=== PATIENT | male | born 1940 | race American Indian/Alaskan Native ===

== ENCOUNTER 2017-02-26 11:27 | Inpatient (IN) | payer MEDICARE, OTHER ==
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
[2017-02-26 12:40] LABS: PH,URINE 7.5 (4.7-8.0); URINE BILIRUBIN NEGATIVE (NEGATIVE); URINE BLOOD NEGATIVE (NEGATIVE); URINE GLUCOSE (UA) NEGATIVE (NEGATIVE); URINE LEUKOCYTE ESTERASE NEGATIVE Leu/uL (NEGATIVE); URINE NITRATE NEGATIVE (NEGATIVE); URINE PROTEIN NEGATIVE mg/dL (<30 mg/dL); URINE UROBILINOGEN 0.2 E.U./dL (<1 E.U./dL)
[2017-02-26 12:46] LABS: URINE APPEARANCE CLEAR (CLEAR); URINE COLOR YELLOW (YELLOW)
[2017-02-26 12:47] LABS: BASO # 0.02 K/mm3 (0.0-2.0); BASO % 0.5 % (0.0-3.0); EOS % 0.8 % (1.5-5.0); GRAN # 2.93 (1.4-6.5); GRAN % 74.5 % (50.0-68.0); HEMOGLOBIN 11.2 gm/dL (14.0-18.0); LYMPH # 0.7 (1.2-3.4); LYMPH % 17.6 % (22.0-35.0); MEAN CELL VOLUME 71.2 fL (80.0-105.0); MEAN CORPUSCULAR HEMOGLOBIN 23.7 pg (25.0-35.0); MEAN CORPUSCULAR HGB CONC 33.2 g/dl (31.0-37.0); MONO # 0.3 (0.1-0.6); MONO % 6.6 % (1.0-6.0); PLATELET COUNT 87 10^3/uL (120.0-450.0); RBC 4.73 10^6/uL (3.5-6.1); RED CELL DISTRIBUTION WIDTH 14.7 % (11.5-14.5); WHITE BLOOD COUNT 3.9 10^3/ul (4.5-11.0)
--- NOTE | 2017-02-26 12:55 | RAD ---
HISTORY: admission COMPARISON: No prior. FINDINGS: LUNGS: No active pulmonary disease. PLEURA: No significant pleural effusion identified, no pneumothorax apparent. CARDIOVASCULAR: Mild cardiomegaly OSSEOUS STRUCTURES: No significant abnormalities. VISUALIZED UPPER ABDOMEN: Normal. OTHER FINDINGS: None. IMPRESSION: No active disease.
[2017-02-26 12:58] LABS: INR 1.11 (0.93-1.08); PARTIAL THROMBOPLASTIN TIME 26.8 Seconds (23.7-30.8)
[2017-02-26 12:59] LABS: ALB/GLOB RATIO 1.2 (1.1-1.8); ALBUMIN 4.3 g/dL (3.0-4.8); ALT/SGPT 17 U/L (7-56); AMYLASE 73 U/L (35-125); AST/SGOT 23 U/L (15-59); BLOOD UREA NITROGEN 16 mg/dL (7-21); CALCIUM 9.2 mg/dL (8.4-10.5); GFR AFRICAN-AMERICAN > 60; GFR NON-AFRICAN AMERICAN > 60; LIPASE 25 U/L (23-300)
[2017-02-26 13:13] LABS: TROPONIN I < 0.01 ng/mL
[2017-02-26] MEDS ORDERED: Sodium Chloride 0.9% 500 ML IV STA (13:19)
--- NOTE | 2017-02-26 13:27 | CT ---
PROCEDURE: CT Abdomen and Pelvis without intravenous contrast HISTORY: rectal bleeding COMPARISON: 06/05/2016. TECHNIQUE: CT scan of the abdomen and pelvis was performed without administration of intravenous contrast. Oral contrast was not administered. Coronal and sagittal reformatted images were obtained. Radiation dose: Total exam DLP = 430.26 mGy-cm. This CT exam was performed using one or more of the following dose reduction techniques: Automated exposure control, adjustment of the mA and/or kV according to patient size, and/or use of iterative reconstruction technique. FINDINGS: LOWER THORAX: There is subsegmental atelectasis in the medial segment of the right middle lobe and left lower lobe. The right lung base is clear. LIVER: The liver is normal in size. No gross lesion or ductal dilatation. GALLBLADDER AND BILE DUCTS: There are no calcified gallstones. PANCREAS: There is mild fatty atrophy of the pancreas. No gross lesion or ductal dilatation. SPLEEN: The spleen is normal in size. ADRENALS: Both adrenal glands are normal in size without discrete nodule. KIDNEYS AND URETERS: Both kidneys are normal in size. There is a 5 mm nonobstructing stone in the lower pole of the right kidney. There are punctate nonobstructing stones in both kidneys. There is mild right hydronephrosis and mild diffuse dilatation of the right ureter without obstructing stone. There is a 1.8 cm simple cyst in the lower pole of the right kidney VASCULATURE: No aortic aneurysm. BOWEL: The small bowel loops are normal in caliber. Status post right colectomy an ileotransverse anastomosis. There is colonic diverticulosis without CT evidence for acute diverticulitis. No bowel dilatation or obstruction. There is an apparent 2.7 x 2.1 cm exophytic isodense lesion along the left lateral wall of the rectum. PERITONEUM: No free fluid. No free air. LYMPH NODES: No enlarged lymph nodes. BLADDER: There are 2 discrete 2 mm stones along the posterior wall of the urinary bladder. There is nonspecific coarse calcification along the right posterolateral bladder wall. REPRODUCTIVE: There is moderate enlargement of the prostate gland with median lobe hypertrophy indenting on the base of the urinary bladder. BONES: No acute fracture. Advanced degenerative disc disease at L4-5 with vacuum disc and small nodes. OTHER FINDINGS: There is a small sliding hiatal hernia. There are bilateral small inguinal hernias containing fibro fatty tissue. IMPRESSION: 1. 2.7 x 2.1 cm exophytic lesion along the left lateral wall of the rectum. Endoscopic correlation is advised to exclude neoplasm. 2. Mild right hydronephrosis and mild diffuse dilatation of the ureteral could be related to recent passage of stones. No obstructing stone identified. 2 discrete 2 mm stones along the posterior wall of the urinary bladder.Bilateral nephrolithiasis, the largest nonobstructing stone in the right lower pole measures 5 mm. 3. Moderate enlargement of the prostate gland with median lobe hypertrophy indenting on the base of the urinary bladder. Please correlate with PSA levels. 4. Status post right hemicolectomy and ileotransverse anastomosis. Colonic diverticulosis without CT evidence for acute diverticulitis.
[2017-02-26] MEDS ORDERED: Sodium Chloride 0.9% 1,000 ML IV STA (15:11)
[2017-02-26 20:03] LABS: BASO # 0.02 K/mm3 (0.0-2.0); BASO % 0.5 % (0.0-3.0); EOS % 0.7 % (1.5-5.0); GRAN # 2.88 (1.4-6.5); GRAN % 71.5 % (50.0-68.0); HEMOGLOBIN 11.5 gm/dL (14.0-18.0); LYMPH # 0.8 (1.2-3.4); LYMPH % 19.1 % (22.0-35.0); MEAN CELL VOLUME 71.2 fL (80.0-105.0); MEAN CORPUSCULAR HEMOGLOBIN 23.5 pg (25.0-35.0); MONO # 0.3 (0.1-0.6); MONO % 8.2 % (1.0-6.0); PLATELET COUNT 103 10^3/uL (120.0-450.0); RED CELL DISTRIBUTION WIDTH 14.7 % (11.5-14.5)
[2017-02-26 21:24] VITALS: BMI 25.9
[2017-02-26] MEDS ORDERED: Pneumococcal 23-Valent Vaccine IM ONE (21:24)
--- NOTE | 2017-02-27 00:01 | CP.PCM.PN ---
Subjective - Date & Time of Evaluation Date of Evaluation: 02/26/17 Objective - Vital Signs/Intake and Output Vital Signs (last 24 hours): Temp Pulse Resp BP Pulse Ox 98 F 82 16 158/90 H 98 02/26/17 21:12 02/26/17 21:12 02/26/17 21:12 02/26/17 21:12 02/26/17 16:00 Intake and Output: 02/26/17 02/27/17 18:59 06:59 Intake Total 480 Balance 480 - Medications Medications: Current Medications Amlodipine Besylate (Norvasc) 10 mg PO DAILY [facility] Carvedilol (Coreg) 6.25 mg PO BID [facility] Finasteride (Proscar) 5 mg PO DAILY [facility] Sodium Chloride (Sodium Chloride 0.9%) 1,000 mls @ 100 mls/hr IV .Q10H STA Stop: 02/27/17 01:10 Last Admin: 02/26/17 15:40 Dose: 100 mls/hr Pantoprazole Sodium (Protonix Inj) 40 mg IVP Q12 [facility] Last Admin: 02/26/17 21:45 Dose: 40 mg - Labs Labs: 02/26/17 19:45 PT 12.0 Seconds (9.9-11.8) H 02/26/17 12:20 INR 1.11 (0.93-1.08) H 02/26/17 12:20 APTT 26.8 Seconds (23.7-30.8) 02/26/17 12:20 Attending/Attestation - Attestation I have personally seen and examined this patient.: Yes I have fully participated in the care of the patient.: Yes I have reviewed all pertinent clinical information, including history, physical exam and plan: Yes
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
[2017-02-27 04:55] LABS: BASO # 0.04 K/mm3 (0.0-2.0); BASO % 1.2 % (0.0-3.0); EOS % 1.2 % (1.5-5.0); GRAN # 1.98 (1.4-6.5); GRAN % 60.6 % (50.0-68.0); HEMOGLOBIN 10.4 gm/dL (14.0-18.0); LYMPH # 0.9 (1.2-3.4); LYMPH % 26.6 % (22.0-35.0); MEAN CELL VOLUME 71.1 fL (80.0-105.0); MEAN CORPUSCULAR HGB CONC 32.3 g/dl (31.0-37.0); MONO # 0.3 (0.1-0.6); MONO % 10.4 % (1.0-6.0); PLATELET COUNT 100 10^3/uL (120.0-450.0); RBC 4.53 10^6/uL (3.5-6.1); RED CELL DISTRIBUTION WIDTH 14.8 % (11.5-14.5); WHITE BLOOD COUNT 3.3 10^3/ul (4.5-11.0)
--- NOTE | 2017-02-27 10:31 | CARD ---
APPROVED REPORT EKG Measurement Heart [id number] <Conclusion> Sinus bradycardia with premature supraventricular complexes Minimal voltage criteria for LVH, may be normal variant Nonspecific T wave abnormality
[2017-02-27 13:45] LABS: BASO # 0.04 K/mm3 (0.0-2.0); BASO % 1.3 % (0.0-3.0); GRAN # 2.13 (1.4-6.5); GRAN % 67.6 % (50.0-68.0); HEMOGLOBIN 11.2 gm/dL (14.0-18.0); LYMPH # 0.7 (1.2-3.4); LYMPH % 22.5 % (22.0-35.0); MEAN CELL VOLUME 71.3 fL (80.0-105.0); MEAN CORPUSCULAR HEMOGLOBIN 23.6 pg (25.0-35.0); MEAN CORPUSCULAR HGB CONC 33.1 g/dl (31.0-37.0); MONO # 0.2 (0.1-0.6); MONO % 7.6 % (1.0-6.0); PLATELET COUNT 87 10^3/uL (120.0-450.0); RBC 4.74 10^6/uL (3.5-6.1); RED CELL DISTRIBUTION WIDTH 14.9 % (11.5-14.5); WHITE BLOOD COUNT 3.2 10^3/ul (4.5-11.0)
[2017-02-27 20:16] LABS: BASO # 0.02 K/mm3 (0.0-2.0); BASO % 0.7 % (0.0-3.0); EOS # 0.1 (0.0-0.7); EOS % 1.8 % (1.5-5.0); GRAN # 1.55 (1.4-6.5); GRAN % 56.4 % (50.0-68.0); HEMOGLOBIN 10.7 gm/dL (14.0-18.0); LYMPH # 0.8 (1.2-3.4); LYMPH % 28.7 % (22.0-35.0); MEAN CELL VOLUME 71.3 fL (80.0-105.0); MEAN CORPUSCULAR HEMOGLOBIN 23.3 pg (25.0-35.0); MEAN CORPUSCULAR HGB CONC 32.6 g/dl (31.0-37.0); MONO # 0.3 (0.1-0.6); MONO % 12.4 % (1.0-6.0); PLATELET COUNT 103 10^3/uL (120.0-450.0); RED CELL DISTRIBUTION WIDTH 14.9 % (11.5-14.5)
[2017-02-27 20:19] LABS: WHITE BLOOD COUNT 2.8 10^3/ul (4.5-11.0)
--- NOTE | 2017-02-27 22:34 | PN ---
DATE: SUBJECTIVE: The patient is seen and examined on the bedside, sitting on the chair, still having blood in the stool, now according to him, it is dark black blood. No nausea or vomiting. No hematuria or hematochezia. No headache or dizziness. No shortness of breath. No chest pain, no palpitations. PHYSICAL EXAMINATION: VITAL SIGNS: Temperature is 98.6, pulse 50, blood pressure 133/83 and respiratory rate 18. HEENT: Head normocephalic and atraumatic. Eyes, PERRLA. Extraocular muscles intact. Conjunctivae clear. Nose patent. Mucous membrane moist. NECK: Supple. No carotid bruit or thyromegaly. CHEST: Bilaterally symmetrical. HEART: S1 and S2, positive. LUNGS: Clear to auscultation. ABDOMEN: Soft. Bowel sounds present. No organomegaly EXTREMITIES: No edema. No cyanosis. NEUROLOGIC: Awake and alert. Moving all 4 extremities. No focal deficits. MEDICATIONS: Coreg, Norvasc, Proscar and Protonix. LABORATORY DATA: White blood cell 3.2, hemoglobin 11.2, hematocrit 33.8, and platelets 87. ASSESSMENT AND PLAN: Mr. Matteo Quintana is a 76-year-old male with anemia, leukopenia, and thrombocytopenia, actually pancytopenia came with the lower gastrointestinal bleeding. CAT scan of the abdomen and pelvis done showed 2.7 x 2.1 cm exophytic lesion along the left lateral wall of the rectum. Endoscopic correlation is advised to exclude the neoplasm and Dr. Landaverde is working on that. Hydronephrosis and nephrolithiasis, benign prostatic hypertrophy, status post right hemicolectomy and ileotransverse anastomosis, chronic diverticulosis without CT evidence of acute diverticulitis. The patient is getting IV fluid. Continue present treatment. He will go for colonoscopy. We will follow up. Екатерина Westbrook MD
[2017-02-28] MEDS ORDERED: Peg-Electrolyte Oral Soln 4L (Golytely) PO ONE (14:40)
--- NOTE | 2017-03-01 03:03 | PN ---
SUBJECTIVE: The patient is seen and examined at the bedside, sitting on the chair, looking comfortable. No nausea, vomiting, diarrhea. No hematuria or hematochezia. No headache, dizziness, chest pain, palpitations, or abdominal pain. PHYSICAL EXAMINATION: VITAL SIGNS: Temperature is 97.9, pulse 58, blood pressure 143/79, and respiratory rate 15. HEENT: Head; normocephalic and atraumatic. Eyes; PERRLA. Extraocular muscles intact. Conjunctivae clear. Nose patent. Mucous membrane moist. NECK: Supple. No carotid bruit. No JVD or thyromegaly. CHEST: Bilaterally symmetrical. HEART: S1 and S2 positive. LUNGS: Clear to auscultation. ABDOMEN: Soft. Bowel sounds present. No organomegaly. EXTREMITIES: No edema. No cyanosis. NEUROLOGIC: The patient is awake and alert, moving all four extremities. No focal deficits. MEDICATIONS: Coreg, Norvasc, and Proscar. LABORATORY DATA: White blood cell 2.8, hemoglobin 10.7, hematocrit 32.8, and platelets 103. Sodium 142 and potassium 3.6. ASSESSMENT AND PLAN: The patient is a 76-year-old male with a leukopenia, anemia, and thrombocytopenia, history of lower gastrointestinal bleeding, seen by Dr. Akhil Rucker, box maker wood. CAT scan of the abdomen and pelvis done. The patient is drinking golyte . He is on clear liquid diet, getting ready tomorrow for colonoscopy and endoscopy. CAT scan shows some exophytic lesion along the left lateral wall of the rectum. GI and DVT prophylaxis, continue present treatment, repeat labs, we will followup. Екатерина Westbrook MD LEATHA
[2017-03-01 07:40] LABS: BASO # 0.02 K/mm3 (0.0-2.0); BASO % 0.5 % (0.0-3.0); EOS % 0.5 % (1.5-5.0); GRAN # 2.82 (1.4-6.5); GRAN % 70.5 % (50.0-68.0); HEMOGLOBIN 11.8 gm/dL (14.0-18.0); LYMPH # 0.8 (1.2-3.4); MEAN CELL VOLUME 71.1 fL (80.0-105.0); MEAN CORPUSCULAR HEMOGLOBIN 23.2 pg (25.0-35.0); MEAN CORPUSCULAR HGB CONC 32.7 g/dl (31.0-37.0); MONO # 0.3 (0.1-0.6); MONO % 7.5 % (1.0-6.0); PLATELET COUNT 118 10^3/uL (120.0-450.0); RBC 5.08 10^6/uL (3.5-6.1); RED CELL DISTRIBUTION WIDTH 14.9 % (11.5-14.5)
[2017-03-01 07:49] LABS: INR 1.11 (0.93-1.08); PARTIAL THROMBOPLASTIN TIME 26.5 Seconds (23.7-30.8)
[2017-03-01 08:20] VITALS: O2SAT 99
[2017-03-01] MEDS ORDERED: Sodium Chloride 0.9% 1,000 ML IV SCH (09:00)
[2017-03-01] MEDS ORDERED: Propofol 10 mg/ml Inj (20 ML) ONE (09:14)
[2017-03-01 09:38] LABS: PLATELET COUNT MANUAL 122 K/mm3 (120-450)
[2017-03-01] MEDS ORDERED: Lidocaine 1% Inj (20ml) ONE (09:44)
[2017-03-01 11:03] VITALS: PULSE 50
[2017-03-01 13:27] VITALS: BP 155/83; RESP 18; TEMP 98.2
--- NOTE | 2017-03-01 17:08 | CP.PCM.DIS ---
Provider - Provider Date of Admission: 02/26/17 15:09 Attending physician: Екатерина Westbrook MD Primary care physician: NO PRIMARY CARE PROVIDER Time Spent in preparation of Discharge (in minutes): 60 Diagnosis - Discharge Diagnosis (1) Anemia Status: Acute (2) Anemia Status: Acute (3) Diverticulitis Status: Acute (4) GI bleed Status: Acute (5) History of percutaneous transluminal coronary angioplasty Status: Acute (6) Leukopenia Status: Acute (7) Lower gastrointestinal hemorrhage Status: Acute (8) Rectal hemorrhage Status: Acute (9) Thrombocytopenia Status: Acute (10) Vasovagal syncope Status: Acute Hospital Course - Lab Results Lab Results: Most Recent Lab Values WBC 4.0 10^3/ul (4.5-11.0) L D 03/01/17 07:10 RBC 5.08 10^6/uL (3.5-6.1) 03/01/17 07:10 Hgb 11.8 gm/dL (14.0-18.0) L 03/01/17 07:10 Hct 36.1 % (42.0-52.0) L 03/01/17 07:10 MCV 71.1 fL (80.0-105.0) L 03/01/17 07:10 MCH 23.2 pg (25.0-35.0) L 03/01/17 07:10 MCHC 32.7 g/dl (31.0-37.0) 03/01/17 07:10 RDW 14.9 % (11.5-14.5) H 03/01/17 07:10 Plt Count 118 10^3/uL (120.0-450.0) L 03/01/17 07:10 Manual Plt Count 122 K/mm3 (120-450) 03/01/17 07:10 Gran % 70.5 % (50.0-68.0) H 03/01/17 07:10 Lymph % (Auto) 21.0 % (22.0-35.0) L 03/01/17 07:10 [place] % (Auto) 7.5 % (1.0-6.0) H 03/01/17 07:10 Eos % (Auto) 0.5 % (1.5-5.0) L 03/01/17 07:10 Baso % (Auto) 0.5 % (0.0-3.0) 03/01/17 07:10 Gran # 2.82 (1.4-6.5) 03/01/17 07:10 Lymph # 0.8 (1.2-3.4) L 03/01/17 07:10 [place] # 0.3 (0.1-0.6) 03/01/17 07:10 Eos # 0.0 (0.0-0.7) 03/01/17 07:10 Baso # 0.02 K/mm3 (0.0-2.0) 03/01/17 07:10 PT 12.0 Seconds (9.9-11.8) H 03/01/17 07:10 INR 1.11 (0.93-1.08) H 03/01/17 07:10 APTT 26.5 Seconds (23.7-30.8) 03/01/17 07:10 Sodium 142 mmol/L (132-148) 02/26/17 12:20 Potassium 3.6 mmol/L (3.6-5.0) 02/26/17 12:20 Chloride 102 mmol/L (98-107) 02/26/17 12:20 Carbon Dioxide 30 mmol/L (21-33) 02/26/17 12:20 Anion Gap 14 (10-20) 02/26/17 12:20 BUN 16 mg/dL (7-21) 02/26/17 12:20 Creatinine 1.1 mg/dL (0.5-1.4) 02/26/17 12:20 Est GFR ( Amer) > 60 02/26/17 12:20 Est GFR (Non-Af Amer) > 60 02/26/17 12:20 Random Glucose 87 mg/dL (70-110) 02/26/17 12:20 Calcium 9.2 mg/dL (8.4-10.5) 02/26/17 12:20 Total Bilirubin 1.1 mg/dL (0.2-1.3) 02/26/17 12:20 AST 23 U/L (15-59) 02/26/17 12:20 ALT 17 U/L (7-56) 02/26/17 12:20 Alkaline Phosphatase 76 U/L (38-133) 02/26/17 12:20 Lactate Dehydrogenase 346 U/L (333-699) 02/26/17 12:20 Total Creatine Kinase 160 U/L (35-230) 02/26/17 12:20 Troponin I < 0.01 ng/mL 02/26/17 12:20 NT-Pro-B Natriuret Pep 157 pg/mL (0-450) 02/26/17 12:30 Total Protein 7.9 g/dL (5.8-8.3) 02/26/17 12:20 Albumin 4.3 g/dL (3.0-4.8) 02/26/17 12:20 Globulin 3.6 gm/dL 02/26/17 12:20 Albumin/Globulin Ratio 1.2 (1.1-1.8) 02/26/17 12:20 Amylase 73 U/L (35-125) 02/26/17 12:20 Lipase 25 U/L (23-300) 02/26/17 12:20 Urine Color Yellow (YELLOW) 02/26/17 12:30 Urine Appearance Clear (CLEAR) 02/26/17 12:30 Urine pH 7.5 (4.7-8.0) 02/26/17 12:30 Ur Specific [place] 1.015 (1.005-1.035) 02/26/17 12:30 Urine Protein Negative mg/dL (<30 mg/dL) 02/26/17 12:30 Urine Glucose (UA) Negative mg/dL (NEGATIVE) 02/26/17 12:30 Urine Ketones Negative mg/dL (NEGATIVE) 02/26/17 12:30 Urine Blood Negative (NEGATIVE) 02/26/17 12:30 Urine Nitrate Negative (NEGATIVE) 02/26/17 12:30 Urine Bilirubin Negative (NEGATIVE) 02/26/17 12:30 Urine Urobilinogen 0.2 E.U./dL (<1 E.U./dL) 02/26/17 12:30 Ur Leukocyte Esterase Negative Miguel/uL (NEGATIVE) 02/26/17 12:30 - Hospital Course Hospital Course: A 76 year old male, whose past medical history includes diverticulitis, anemia and colitis, presents to the emergency department complaining of bloody diarrhea prior to arrival since this morning. Patient noted feeling light headedness. Patient states the pain is similar to prior diverticulitis symptoms. Patient denies any abdominal pain, chest pain or any other complaints.pt was admitted in the hospital , gi consult called , went for endo and colonoscopy , cat scane of abdomen done , noted by me , d/d with dr monae , he cleared pt . dc home with f/u pcp and gi Discharge Exam - Head Exam Head Exam: NORMAL INSPECTION - Eye Exam Eye Exam: EOMI, Normal appearance, PERRL Pupil Exam: NORMAL ACCOMODATION, PERRL - GI/Abdominal Exam GI & Abdominal Exam: Normal Bowel Sounds - Rectal Exam Rectal Exam: NORMAL INSPECTION - Exam Exam: Circumcision, NORMAL INSPECTION External exam: NORMAL EXTERNAL EXAM Speculum exam: NORMAL SPECULUM EXAM Bimanual exam: NORMAL BIMANUAL EXAM - Neurological Exam Neurological exam: Alert, CN II-XII Intact, Normal Gait, Oriented x3, Reflexes Normal - Psychiatric Exam Psychiatric exam: Normal Affect, Normal Mood - Skin Skin Exam: Dry, Intact, Normal Color, Warm Discharge Plan - Follow Up Plan Condition: STABLE Disposition: HOME/ ROUTINE Instructions: Gastrointestinal Bleeding (DC), Heart Healthy Diet (DC), Upper Endoscopy (DC), Acute Abdominal Pain (DC) Referrals: Екатерина Westbrook MD [Staff Provider] - Alka Landaverde MD [Medical Doctor] -
--- NOTE | 2017-03-01 23:42 | CP.PCM.PN ---
Subjective - Date & Time of Evaluation Date of Evaluation: 02/28/17 Time of Evaluation: 14:45 - Subjective Subjective: p Objective - Vital Signs/Intake and Output Vital Signs (last 24 hours): Temp Pulse Resp BP Pulse Ox 97.9 F 58 L 16 143/79 99 02/28/17 15:58 02/28/17 15:58 02/28/17 15:58 02/28/17 17:13 02/28/17 15:58 Intake and Output: 02/28/17 03/01/17 18:59 06:59 Intake Total 1080 800 Balance 1080 800 - Medications Medications: Current Medications Amlodipine Besylate (Norvasc) 10 mg PO DAILY [facility] Last Admin: 02/28/17 09:33 Dose: 10 mg Carvedilol (Coreg) 6.25 mg PO BID [facility] Last Admin: 02/28/17 17:13 Dose: 6.25 mg Finasteride (Proscar) 5 mg PO DAILY [facility] Last Admin: 02/28/17 09:34 Dose: 5 mg - Labs Labs: 02/27/17 20:00 PT 12.0 Seconds (9.9-11.8) H 02/26/17 12:20 INR 1.11 (0.93-1.08) H 02/26/17 12:20 APTT 26.8 Seconds (23.7-30.8) 02/26/17 12:20 Assessment and Plan - Assessment and Plan (Free Text) Assessment: p
--- NOTE | 2017-03-01 23:43 | CP.PCM.PN ---
Subjective - Date & Time of Evaluation Date of Evaluation: 02/27/17 Time of Evaluation: 18:30 - Subjective Subjective: p Objective - Vital Signs/Intake and Output Vital Signs (last 24 hours): Temp Pulse Resp BP Pulse Ox 98.3 F 50 L 18 133/83 99 02/27/17 16:31 02/27/17 16:31 02/27/17 16:31 02/27/17 16:31 02/27/17 16:31 Intake and Output: 02/27/17 02/28/17 18:59 06:59 Intake Total 640 240 Balance 640 240 - Medications Medications: Current Medications Amlodipine Besylate (Norvasc) 10 mg PO DAILY [facility] Last Admin: 02/27/17 09:52 Dose: 10 mg Carvedilol (Coreg) 6.25 mg PO BID [facility] Last Admin: 02/27/17 18:20 Dose: 6.25 mg Finasteride (Proscar) 5 mg PO DAILY [facility] Last Admin: 02/27/17 09:52 Dose: 5 mg - Labs Labs: 02/27/17 20:00 PT 12.0 Seconds (9.9-11.8) H 02/26/17 12:20 INR 1.11 (0.93-1.08) H 02/26/17 12:20 APTT 26.8 Seconds (23.7-30.8) 02/26/17 12:20 Assessment and Plan - Assessment and Plan (Free Text) Assessment: p
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
== END 2017-03-01 14:33 | disposition home or self-care (01) | DRG 378 ==
LOC: ED 11:27 → ERH 15:09 → 5RNO 16:08
PROVIDERS: ADMIT Internal Medicine; ATTEND Internal Medicine
PROC: 0DBB8ZX Excision of Ileum, Via Natural or Artificial Opening Endoscopic, Diagnostic (ICD-10-PCS; 2017-03-01)
PROC: 0DB68ZX Excision of Stomach, Via Natural or Artificial Opening Endoscopic, Diagnostic (ICD-10-PCS; principal; 2017-03-01 08:00)
PROC: 0DB98ZZ Excision of Duodenum, Via Natural or Artificial Opening Endoscopic (ICD-10-PCS; 2017-03-01 08:00)
DX: K92.1 Melena (principal); D61.818 Other pancytopenia; K63.3 Ulcer of intestine; N13.2 Hydronephrosis with renal and ureteral calculous obstruction; J98.11 Atelectasis; J44.9 Chronic obstructive pulmonary disease, unspecified; N40.0 Benign prostatic hyperplasia without lower urinary tract symptoms; I25.10 Atherosclerotic heart disease of native coronary artery without angina pectoris; I10 Essential (primary) hypertension; K22.5 Diverticulum of esophagus, acquired; K44.9 Diaphragmatic hernia without obstruction or gangrene; K31.7 Polyp of stomach and duodenum; K29.50 Unspecified chronic gastritis without bleeding; K31.9 Disease of stomach and duodenum, unspecified; K57.30 Diverticulosis of large intestine without perforation or abscess without bleeding; K64.8 Other hemorrhoids; Z85.46 Personal history of malignant neoplasm of prostate; Z95.5 Presence of coronary angioplasty implant and graft; Z86.010 Personal history of colon polyps; Z90.49 Acquired absence of other specified parts of digestive tract

== ENCOUNTER 2017-05-18 10:45 | Day surgery (SDC) | payer MEDICARE, BC ==
[2017-05-18 11:09] VITALS: TEMP 98.3
[2017-05-18] MEDS ORDERED: Lidocaine 2% Jelly (30 ml) ONE (12:29)
[2017-05-18 13:54] VITALS: O2SAT 99
[2017-05-18 14:08] VITALS: PULSE 52; RESP 16
[2017-05-18 14:40] VITALS: BP 163/92
== END 2017-05-18 14:40 | disposition home or self-care (01) ==
LOC: ENDO 10:45
PROVIDERS: ATTEND Internal Medicine Gastroenterology
DX: K62.3 Rectal prolapse (principal); K57.30 Diverticulosis of large intestine without perforation or abscess without bleeding; K64.8 Other hemorrhoids

== ENCOUNTER 2017-10-01 06:07 | Emergency (ER) | payer MEDICARE, BC ==
[2017-10-01 06:08] VITALS: BMI 25.9
[2017-10-01 06:27] VITALS: RESP 18; TEMP 98.5
[2017-10-01] MEDS ORDERED: Sodium Chloride 0.9% 1,000 ML IV STA (06:32)
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
[2017-10-01 07:13] LABS: BASO # 0.01 K/mm3 (0.0-2.0); BASO % 0.1 % (0.0-3.0); EOS % 0.1 % (1.5-5.0); GRAN # 7.48 (1.4-6.5); GRAN % 94.3 % (50.0-68.0); HEMOGLOBIN 12.3 g/dL (14.0-18.0); LYMPH # 0.3 (1.2-3.4); LYMPH % 3.5 % (22.0-35.0); MEAN CELL VOLUME 73.2 fl (80.0-105.0); MEAN CORPUSCULAR HEMOGLOBIN 23.4 pg (25.0-35.0); MEAN CORPUSCULAR HGB CONC 31.9 g/dl (31.0-37.0); MONO # 0.2 (0.1-0.6); PLATELET COUNT 113 10^3/uL (120.0-450.0); RBC 5.26 10^6/uL (3.5-6.1); RED CELL DISTRIBUTION WIDTH 15.3 % (11.5-14.5); WHITE BLOOD COUNT 7.9 10^3/ul (4.5-11.0)
[2017-10-01 07:23] LABS: ALB/GLOB RATIO 1.2 (1.1-1.8); ALBUMIN 4.5 g/dL (3.0-4.8); ALT/SGPT 24 U/L (7-56); AST/SGOT 25 U/L (17-59); BLOOD UREA NITROGEN 17 mg/dL (7-21); GFR AFRICAN-AMERICAN > 60; GFR NON-AFRICAN AMERICAN > 60; LIPASE 27 U/L (23-300)
[2017-10-01 07:24] VITALS: BP 168/98; PULSE 68; O2SAT 98
[2017-10-01 07:25] LABS: PH,URINE 7.5 (4.7-8.0); URINE BILIRUBIN NEGATIVE (NEGATIVE); URINE BLOOD NEGATIVE (NEGATIVE); URINE GLUCOSE (UA) 100 mg/dL (NEGATIVE); URINE LEUKOCYTE ESTERASE NEGATIVE Leu/uL (NEGATIVE); URINE PROTEIN TRACE mg/dL (<30 mg/dL); URINE UROBILINOGEN 0.2 E.U./dL (<1 E.U./dL)
[2017-10-01] MEDS ORDERED: Potassium Chloride 20 mEq ER Tab PO STA (07:27)
[2017-10-01 07:35] LABS: URINE APPEARANCE CLEAR (CLEAR); URINE COLOR YELLOW (YELLOW)
--- NOTE | 2017-10-01 07:35 | ED PDOC ---
Physical Exam Vital Signs Temp Pulse Resp BP Pulse Ox 10/01/17 07:19 68 18 168/98 H 98 10/01/17 06:27 98.5 F 81 18 176/98 H 100 Medical Decision Making ED Course and Treatment: 10/01/17 07:00 Case signed out to me by Dr. Desouza. Patient is a 77 year old male, who presents to the emergency department complaining of nausea, non-bloody, nonbilious vomiting, non-bloody diarrhea that started 3 hours ago. Patient is in no distress and pending labs. 10/01/17 08:14 On reevaluation the patient feels better and is in no acute distress. I have discussed the results and plan with the patient, who expresses understanding. He states feeling better and having no abdominal pain. Patient's abdomen is non- tender with no guarding, distention, or rebound. He is tolerating PO fluids well. Patient was given the opportunity to ask question, all questions were answered and there is agreement with the plan to discharge the patient home. Patient is stable for discharge. Patient was instructed to follow up with physician/clinic in 1-2 days or return if symptoms persist/worsen or new concerning symptoms arise. - Lab Interpretations Lab Results: 10/01/17 06:40 10/01/17 06:40 Lab Results 10/01/17 06:40: Urine Color Yellow, Urine Appearance Clear, Urine pH 7.5, Ur Specific [place] 1.015, Urine Protein Trace H, Urine Glucose (UA) 100 H, Urine Ketones Negative, Urine Blood Negative, Urine Nitrate Negative, Urine Bilirubin Negative, Urine Urobilinogen 0.2, Ur Leukocyte Esterase Negative, Urine RBC 0 - 2, Urine WBC 0 - 2, Ur Epithelial Cells None, Amorphous Sediment Few, Urine Bacteria Mod 10/01/17 06:40: Sodium 143, Potassium 3.2 L, Chloride 102, Carbon Dioxide 28, Anion Gap 15, BUN 17, Creatinine 1.1, Est GFR ( Amer) > 60, Est GFR (Non- Af Amer) > 60, Random Glucose 179 H, Calcium 10.0, Total Bilirubin 1.8 H, AST 25 , ALT 24, Alkaline Phosphatase 81, Total Protein 8.2, Albumin 4.5, Globulin 3.7 , Albumin/Globulin Ratio 1.2, Lipase 27 10/01/17 06:40: WBC 7.9 D, RBC 5.26, Hgb 12.3 L, Hct 38.5 L, MCV 73.2 L, MCH 23.4 L, MCHC 31.9, RDW 15.3 H, Plt Count 113 L, Gran % 94.3 H, Lymph % (Auto) 3.5 L, [place] % (Auto) 2.0, Eos % (Auto) 0.1 L, Baso % (Auto) 0.1, Gran # 7.48 H, Lymph # (Auto) 0.3 L, [place] # (Auto) 0.2, Eos # (Auto) 0.0, Baso # (Auto) 0.01, Neutrophils % (Manual) Pending, Lymphocytes % (Manual) Pending, Monocytes % ( Manual) Pending - Medication Orders Current Medication Orders: Discontinued Medications Famotidine (Pepcid) 20 mg IVP STAT STA Stop: 10/01/17 06:33 Last Admin: 10/01/17 06:50 Dose: 20 mg IVP Administration Document 10/01/17 06:50 CNR (Rec: 10/01/17 06:50 CNR [id number]) Charges for Administration # of IVP Administrations 1 Sodium Chloride (Sodium Chloride 0.9%) 1,000 mls @ 999 mls/hr IV .Q1H1M STA Stop: 10/01/17 07:32 Last Admin: 10/01/17 06:50 Dose: 999 mls/hr eMAR Start Stop Document 10/01/17 06:50 CNR (Rec: 10/01/17 06:50 CNR [id number]) Intravenous Solution Start Date 10/01/17 Start Time 06:50 Ondansetron HCl (Zofran Inj) 4 mg IVP STAT STA Stop: 10/01/17 06:33 Last Admin: 10/01/17 06:50 Dose: 4 mg IVP Administration Document 10/01/17 06:50 CNR (Rec: 10/01/17 06:50 CNR [id number]) Charges for Administration # of IVP Administrations 1 Potassium Chloride (K-Dur 20 Meq Er Tab) 40 meq PO STAT STA Stop: 10/01/17 07:28 - Scribe Statement The provider has reviewed the documentation as recorded by the [place] Provider Scribe Attestation: All medical record entries made by the Scribe were at my direction and personally dictated by me. I have reviewed the chart and agree that the record accurately reflects my personal performance of the history, physical exam, medical decision making, and the department course for this patient. I have also personally directed, reviewed, and agree with the discharge instructions and disposition. Disposition/Present on Arrival - Present on Arrival Any Indicators Present on Arrival: No History of DVT/PE: No History of Uncontrolled Diabetes: No Urinary Catheter: No History of Decub. Ulcer: No History Surgical Site Infection Following: None - Disposition Have Diagnosis and Disposition been Completed?: Yes Diagnosis: Gastroenteritis Disposition: HOME/ ROUTINE Disposition Time: 08:15 Patient Plan: Discharge Patient Problems: Current Active Problems Problem Status Onset Gastroenteritis Acute Condition: IMPROVED Discharge Instructions (ExitCare): Diarrhea in Adolescents and Adults Additional Instructions: Mr Felipe, thank you for letting us take care of you today. Your provider was Dr. Leavitt. You were treated for Gastroenteritis. The emergency medical care you received today was directed at your acute symptoms. If you were prescribed any medication, please fill it and take as directed. It may take several days for your symptoms to resolve. Return to the Emergency Department if your symptoms worsen, do not improve, or if you have any other problems. Please contact your doctor or call one of the physicians/clinics you have been referred to that are listed on the Patient Visit Information form that is included in your discharge packet. Bring any paperwork you were given at discharge with you along with any medications you are taking to your follow up visit. Our treatment cannot replace ongoing medical care by a primary care provider (PCP) outside of the emergency department. Thank you for allowing the [facility] team to be part of your care today. If you had an X-Ray or CT scan: A Radiologist will review the ED reading if any change in treatment is needed we will contact you. If you had a blood, urine, or wound culture: It will take several days for the results, if any change in treatment is needed we will contact you. If you had an STI test: It will take 48 hours for the results. Please call after 1 week if you have not heard back. Referrals: Екатерина Westbrook MD [Primary Care Provider] - Follow up with primary Forms: [facility] (Croatian), WORK NOTE
[2017-10-01 07:49] LABS: URINE AMORPHOUS SEDIMENT FEW; URINE BACTERIA MOD (NEG); URINE RBC 0 - 2 /hpf (0-2); URINE WBC 0 - 2 /hpf (0-6)
[2017-10-01 08:17] LABS: LYMPHOCYTE 1 % (22.0-35.0); MONOCYTE 4 % (1.0-6.0); NEUTROPHIL 95 % (50.0-70.0)
[2017-10-01 08:18] LABS: PLATELET ESTIMATE LOW (NORMAL)
[2017-10-01 08:19] LABS: LARGE PLATELETS PRESENT
== END 2017-10-01 08:38 | disposition home or self-care (01) ==
LOC: ED 06:07
DX: K52.9 Noninfective gastroenteritis and colitis, unspecified (principal); I10 Essential (primary) hypertension; D64.9 Anemia, unspecified; Z95.5 Presence of coronary angioplasty implant and graft
CPT/HCPCS: 80053; 81001; 83690; 85025; 96374; 96375; 99284; J2405; J7040

== ENCOUNTER 2018-05-16 14:32 | Emergency (ER) | payer MEDICARE, BC ==
[2018-05-16 15:19] VITALS: RESP 18; BMI 25.0
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
[2018-05-16 15:43] LABS: BASO # 0.04 K/mm3 (0.0-2.0); BASO % 1.1 % (0.0-3.0); EOS % 1.1 % (1.5-5.0); GRAN # 2.53 (1.4-6.5); GRAN % 67.2 % (50.0-68.0); HEMOGLOBIN 10.9 g/dL (14.0-18.0); LYMPH # 0.8 (1.2-3.4); LYMPH % 21.3 % (22.0-35.0); MEAN CELL VOLUME 71.9 fl (80.0-105.0); MEAN CORPUSCULAR HEMOGLOBIN 23.2 pg (25.0-35.0); MEAN CORPUSCULAR HGB CONC 32.3 g/dl (31.0-37.0); MONO # 0.4 (0.1-0.6); MONO % 9.3 % (1.0-6.0); PLATELET COUNT 72 10^3/uL (120.0-450.0); RBC 4.69 10^6/uL (3.5-6.1); RED CELL DISTRIBUTION WIDTH 15.5 % (11.5-14.5); WHITE BLOOD COUNT 3.8 10^3/ul (4.5-11.0)
[2018-05-16 15:44] LABS: PH,URINE 7.5 (4.7-8.0); URINE BILIRUBIN NEGATIVE (NEGATIVE); URINE BLOOD NEGATIVE (NEGATIVE); URINE GLUCOSE (UA) NEGATIVE (NEGATIVE); URINE LEUKOCYTE ESTERASE TRACE Leu/uL (NEGATIVE); URINE PROTEIN 30 mg/dL (<30 mg/dL); URINE UROBILINOGEN 0.2 E.U./dL (<1 E.U./dL)
[2018-05-16 15:54] LABS: URINE APPEARANCE CLEAR (CLEAR); URINE COLOR YELLOW (YELLOW)
[2018-05-16 15:55] LABS: ALB/GLOB RATIO 1.4 (1.1-1.8); ALBUMIN 4.1 g/dL (3.0-4.8); ALT/SGPT 43 U/L (7-56); AST/SGOT 30 U/L (17-59); BLOOD UREA NITROGEN 23 mg/dL (7-21); CALCIUM 9.1 mg/dL (8.4-10.5); GFR NON-AFRICAN AMERICAN 45; URINE RBC 0 - 2 /hpf (0-2)
[2018-05-16 15:56] LABS: URINE AMORPHOUS SEDIMENT FEW; URINE BACTERIA MANY (NEG); URINE EPITHELIAL CELLS 0 - 2 /hpf (0-5)
[2018-05-16 15:57] LABS: INR 1.26; PARTIAL THROMBOPLASTIN TIME 33.4 Seconds (25.1-36.5); PROTHROMBIN TIME 14.4 SECONDS (9.4-12.5)
[2018-05-16 16:06] LABS: TROPONIN I < 0.01 ng/mL
[2018-05-16 18:24] VITALS: BP 172/102; PULSE 72; TEMP 98; O2SAT 98
--- NOTE | 2018-05-17 10:05 | CARD ---
APPROVED REPORT Date of service: 05/16/2018 EKG Measurement Heart [id number] <Conclusion> Sinus rhythm with APCs PRWP LVH by voltage Nonspecific T wave abnormality Prolonged QT No change
== END 2018-05-16 17:30 | disposition left against medical advice (07) ==
LOC: ED 14:32
DX: I10 Essential (primary) hypertension (principal); R94.31 Abnormal electrocardiogram [ECG] [EKG]
CPT/HCPCS: 80053; 81001; 82550; 83615; 83735; 84484; 85025; 85610; 85730; 87086; 93005; 96374; 99285; J0360

== ENCOUNTER 2018-06-14 10:25 | Day surgery (SDC) | payer MEDICARE, BC ==
[2018-06-14 00:27] VITALS: BMI 25.0
[2018-06-14 10:54] LABS: BASO # 0.03 K/mm3 (0.0-2.0); BASO % 0.9 % (0.0-3.0); EOS % 1.2 % (1.5-5.0); GRAN # 2.22 (1.4-6.5); GRAN % 64.5 % (50.0-68.0); HEMOGLOBIN 11.4 g/dL (14.0-18.0); LYMPH # 0.9 (1.2-3.4); LYMPH % 24.7 % (22.0-35.0); MEAN CELL VOLUME 71.8 fl (80.0-105.0); MEAN CORPUSCULAR HEMOGLOBIN 23.1 pg (25.0-35.0); MEAN CORPUSCULAR HGB CONC 32.2 g/dl (31.0-37.0); MONO # 0.3 (0.1-0.6); MONO % 8.7 % (1.0-6.0); PLATELET COUNT 107 10^3/uL (120.0-450.0); RBC 4.93 10^6/uL (3.5-6.1); RED CELL DISTRIBUTION WIDTH 15.1 % (11.5-14.5); WHITE BLOOD COUNT 3.4 10^3/uL (4.5-11.0)
[2018-06-14 11:03] LABS: INR 1.15; PARTIAL THROMBOPLASTIN TIME 30.9 Seconds (25.1-36.5); PROTHROMBIN TIME 13.3 SECONDS (9.4-12.5)
[2018-06-14 11:08] LABS: BLOOD UREA NITROGEN 16 mg/dL (7-21); CALCIUM 9.4 mg/dL (8.4-10.5); GFR NON-AFRICAN AMERICAN 54
[2018-06-14] MEDS ORDERED: Iodixanol 320 MG/ML 100 ML BOTTLE IV ONE (11:14)
[2018-06-14] MEDS ORDERED: Iohexol 350mgl/ml 50 ML ONE (11:14)
[2018-06-14] MEDS ORDERED: Lidocaine 2% Inj (20ml) ONE (11:14)
[2018-06-14] MEDS ORDERED: Nitroglycerin 50mg in D5W 0 MG/0 ML BOTTLE IV ONE (11:14)
[2018-06-14] MEDS ORDERED: Iodixanol 320 MG/ML 200 ML BOTTLE IV ONE (11:14)
[2018-06-14] MEDS ORDERED: Phenylephrine 10 mg/ml Inj ONE (11:14)
[2018-06-14] MEDS ORDERED: Potassium Chloride 20 mEq ER Tab PO ONE (12:13)
[2018-06-14] MEDS ORDERED: Midazolam 2 MG/2 ML VIAL ONE ×2 (13:22→13:24)
[2018-06-14] MEDS ORDERED: Sodium Chloride 0.9% 1,000 ML IV SCH (13:45)
--- NOTE | 2018-06-14 14:15 | CARD ---
APPROVED REPORT Date of service: 06/14/2018 EKG Measurement Heart [id number] <Conclusion> Sinus rhythm with APCs Voltage criteria for left ventricular hypertrophy Nonspecific T wave abnormality
[2018-06-14 14:47] VITALS: TEMP 98.5
--- NOTE | 2018-06-14 16:22 | CARDCATH ---
PROCEDURE DATE: 06/14/2018 HISTORY: The patient is a 77-year-old male with history of multivessel PTCA and stent in the past, who presents with an abnormal stress test. The stress test revealed new coronary defects as well as a depressed LV function, because of this, cardiac catheterization was recommended. PROCEDURE: Left heart catheterization with coronary arteriography, left ventriculogram, and aortic root injection. The right femoral artery was cannulated with a 6-Algerian sheath. There were no complications. I performed moderate sedation which included, the presence of an independent trained observer that assisted in monitoring the patient's consciousness and physiologic status. After administration of Versed and fentanyl, my intra service time was 15 minutes. The findings on catheterization revealed a left ventricle that was minimally hypokinetic. Estimated ejection fraction of 50-55%. His coronary anatomy revealed a right dominant circulation. The RCA revealed diffuse atherosclerosis with a 50% stenosis in the mid RCA as well as a patent stent. There were multiple borderline 50% lesions in the PDA. The left main artery was unremarkable. The LAD revealed a patent stent that was long stent that went from the proximal LAD to the mid LAD. There was a small diagonal vessel that revealed a 99% stenosis at its ostium as well as a 99% stenosis in its midportion. The circumflex artery and obtuse marginal branches revealed intimal irregularities without significant stenosis. Supra-aortic valvular injection revealed no aortic insufficiency. Angio-Seal was used to close the femoral artery site. The patient tolerated the procedure well. In summary, the procedure revealed low normal LV function with an EF of 50-55%. Patent stent in the RCA as well as the LAD. 50% stenosis in the mid RCA. A 90% stenosis in the small diagonal vessel. No aortic insufficiency. Given these findings, the patient's cardiac status is stable. He needs to continue a cardiac risk reduction program. Michael Jennings MD
[2018-06-14 17:07] VITALS: PULSE 71
[2018-06-14 18:58] VITALS: O2SAT 98
[2018-06-14 18:59] VITALS: BP 162/70; RESP 18
== END 2018-06-14 19:04 | disposition home or self-care (01) ==
LOC: SDSVAS 10:25
PROVIDERS: ATTEND Internal Medicine Cardiovascular Disease
DX: I25.10 Atherosclerotic heart disease of native coronary artery without angina pectoris (principal); I10 Essential (primary) hypertension; R94.39 Abnormal result of other cardiovascular function study; Z88.8 Allergy status to other drugs, medicaments and biological substances; E78.00 Pure hypercholesterolemia, unspecified; Z95.5 Presence of coronary angioplasty implant and graft

== ENCOUNTER 2018-09-15 09:11 | Outpatient (CLI) | payer MEDICARE, BC | END 2018-09-15 09:12 | disposition home or self-care (01) | LOC: LAB 09:11 ==

== ENCOUNTER 2018-09-20 08:23 | Emergency (ER) | payer MEDICARE, BC ==
[2018-09-20 08:24] VITALS: BMI 25.0
[2018-09-20 08:51] VITALS: RESP 18; TEMP 99.4; O2SAT 98
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
[2018-09-20] MEDS ORDERED: Lidocaine 1% Inj (20ml) ONE (09:34)
[2018-09-20 11:42] LABS: FLUID TYPE SYNOVIAL FLUID
[2018-09-20 12:02] LABS: SF GROSS APPEARANCE CLOUDY (CLEAR)
[2018-09-20 12:10] VITALS: BP 143/83; PULSE 88
== END 2018-09-20 12:15 | disposition home or self-care (01) ==
LOC: ED 08:23
DX: M25.462 Effusion, left knee (principal)

== ENCOUNTER → 2018-10-07 | Outpatient (CLI) | payer MEDICARE, BC | LOC: LAB 13:23 ==

== ENCOUNTER → 2018-11-29 | Outpatient (CLI) | payer MEDICARE, BC | LOC: PAT 08:04 ==

== ENCOUNTER 2018-12-22 07:01 | Day surgery (SDC) | payer MEDICARE ==
[2018-11-29 08:42] VITALS: BMI 25.3
[2018-12-22] MEDS ORDERED: Iohexol 240 (50 ml) ONE (09:21)
[2018-12-22] MEDS ORDERED: cefTRIAXone (Rocephin) 1 gm Inj ONE (09:21)
[2018-12-22] MEDS ORDERED: Etomidate 20 mg/10ml Inj IV ONE (09:27)
[2018-12-22] MEDS ORDERED: Midazolam 2 MG/2 ML VIAL ONE (09:27)
[2018-12-22] MEDS ORDERED: cefTRIAXone 1 GM in NS 100 ML BAG IVPB ONE (09:40)
[2018-12-22] MEDS ORDERED: HYDROmorphone 0.5 mg/0.5 ml ISec IVP PRN (11:01)
[2018-12-22 12:23] VITALS: RESP 18; TEMP 998.3
[2018-12-22 13:13] VITALS: BP 155/88; PULSE 61; O2SAT 98
--- NOTE | 2018-12-22 21:30 | OP ---
PROCEDURE DATE: 12/22/2018 PREOPERATIVE DIAGNOSIS: Bladder outlet obstruction, benign prostatic hypertrophy. POSTOPERATIVE DIAGNOSIS: Bladder outlet obstruction, benign prostatic hypertrophy. PROCEDURE: Cystoscopy with GreenLight laser vaporization of prostate. ATTENDING SURGEON: Jabier Hicks MD ANESTHESIA: General. SPECIMENS: Bladder stones and debris were sent to pathology. DRAINS: 20-Ivorian three-way Saul catheter. COMPLICATIONS: There were none. OPERATIVE FINDINGS: After informed consent was obtained, the patient was taken to operating room, placed on the operating table. Anesthesia was administered. The patient was placed in dorsal lithotomy position and prepped and draped in the usual sterile fashion. A 21-Ivorian laser scope with a visualizing obturator was placed in the patient's urethra and advanced proximally under direct vision until the bladder was entered. A full survey inspection of bladder was then performed which revealed multiple small bladder calculi. There were no papillary tumors or other foreign bodies. Both ureteral orifices were visualized and appeared within normal limits. Bladder had grade 1 trabeculation noted. At this point, the scope was withdrawn to the level of the verumontanum. The view from the verumontanum revealed a markedly enlarged occlusive appearing prostate with trilobar hypertrophy, small median lobe growing up into the bladder but not covering the trigone. At this point, a GreenLight laser fiber was obtained. It was passed through the scope, and under direct vision, laser vaporization of the prostate was begun. First, the median lobe tissue was vaporized down to the appropriate level. After the median lobe was vaporized, the lateral lobes and apical tissue were then vaporized starting at the bladder neck proximally and working towards the verumontanum distally. Any bleeding points encountered during the vaporization were controlled using the cauterization feature on the laser. After all the obstructive tissue had been completely vaporized, the irrigation was turned off and field was inspected for any bleeding points. Any bleeding points were controlled using the cauterization feature on the laser. The bladder was then inspected. There was a small amount of debris and some small stones which were able to be irrigated out of the bladder and sent to pathology as specimen. At this point, the procedure was completed. There was good hemostasis and a widely opened prostatic fossa. The scope was then withdrawn and a 20-Ivorian three-way Saul catheter was passed and placed to continuous bladder irrigation. The patient tolerated the procedure well. He was returned to the supine position and taken to the recovery room awake and in stable condition. Jabier Hicks MD
== END 2018-12-22 14:20 | disposition home or self-care (01) ==
LOC: SDS 07:01
PROVIDERS: ATTEND Urology
DX: N32.0 Bladder-neck obstruction (principal); N13.8 Other obstructive and reflux uropathy; N40.1 Benign prostatic hyperplasia with lower urinary tract symptoms; I10 Essential (primary) hypertension; I25.10 Atherosclerotic heart disease of native coronary artery without angina pectoris; I25.5 Ischemic cardiomyopathy; E78.00 Pure hypercholesterolemia, unspecified; I25.2 Old myocardial infarction; Z95.5 Presence of coronary angioplasty implant and graft; Z88.8 Allergy status to other drugs, medicaments and biological substances
CPT/HCPCS: 52648; 88300; J0696; J1170; J2001; J2250; J2405; J3010; Q9966